=== PATIENT | male | born 1960 | race Caucasian/White ===

== ENCOUNTER 2020-05-31 14:57 | Outpatient (CLI) | payer OTHER ==
--- NOTE | 2020-05-31 16:02 | ULT ---
Scrotal sonogram with duplex evaluation HISTORY: Left testicular pain and swelling. FINDINGS: Right testicle is 4.2 cm length with good color and spectral Doppler flow. Normal appearance. Very sm all amount right scrotal fluid. Epididymal head cyst is 0.3 cm. Left testicle is 5.0 cm length. Relatively heterogeneous slightly increased flow. At the superior arnol e is a well-circumscribed 0.6 cm intratesticular cyst. It has a slightly echogenic wall and tiny internal punctate calcification. It also is partially visualized as the hypoechoic focus at the super ior pole of the testicle on images near the end of the exam were a 0.3 cm echogenic nonspecific calcification is extrinsic to the testicle. Relatively large amount of left scrotal fluid. IMPRESSION : No evidence of testicular mass or torsion. Left hydrocele with mildly inflamed features of the left testicle. Appearance of orchitis.
== END 2020-05-31 14:58 | disposition home or self-care (01) ==
LOC: BICULT 14:57
PROVIDERS: ATTEND Internal Medicine Medical Oncology
DX: N50.812 Left testicular pain (principal); N50.89 Other specified disorders of the male genital organs; N43.3 Hydrocele, unspecified
CPT/HCPCS: 76870; 93976